=== PATIENT | female | born 1940 | race Caucasian/White ===

== ENCOUNTER 2016-07-06 10:29 | Day surgery (SDC) | payer MEDICARE, OTHER ==
[~2016-07-06 10:29] MED LIST: Lactated Ringers 1,000 ML IV SCH; Sodium Chloride 0.9% 10 ML Syringe FLUSH PRN
[2016-07-06] MEDS ORDERED: fentaNYL 100 MCG/2 ML SDV ONE (13:01)
[2016-07-06] MEDS ORDERED: Propofol 200 MG/20 ML SDV ONE (13:01)
[2016-07-06 15:33] VITALS: BP 139/74
--- NOTE | 2016-07-06 22:13 | OR ---
DATE OF SURGERY: 07/06/2016. REFERRING PROVIDER: RIANA Teran at [facility]. PRE-OPERATIVE DIAGNOSES: 1. Positive FIT stool card. 2. History of diverticulitis, status post drainage in the past. 3. Chronic diarrhea. POST-OPERATIVE DIAGNOSES: 1. About a 2 cm soft mucosal prominence located at the hepatic flexure. I suspect this is a benign mucosal prominence lesion like lipoma. Cold biopsies taken. 2. Mild left-sided diverticulosis. 3. Otherwise normal appearing colon. Random biopsies were taken given the patient's history of chronic diarrhea. PROCEDURE: Colonoscopy with random colon biopsies as well as cold biopsies taken from hepatic flexure mucosal prominence. SURGEON: Tony Chowdhury M.D. ANESTHESIA: Monitored anesthesia care. BOWEL PREP: Good. DESCRIPTION OF PROCEDURE: Tess is a 75-year-old female, who was brought to the endoscopy suite after discussing risks and benefits of the procedure. Informed consent was obtained for conscious sedation and colonoscopy with or without biopsy and/or polypectomy. We also discussed possibility of missed lesions. Pre-procedure exam was unremarkable. IV, oxygen, and monitors were placed. The patient was placed in the left lateral decubitus position. Sedation was administered and a digital rectal exam was performed which was unremarkable. Colonoscope was passed into the rectum and slowly advanced all the way to the cecum. Cecum was viewed and photographed. The colonoscope was slowly withdrawn and the mucosa was closely observed in a direct circumferential manner. Random colon biopsies were taken. The ascending colon was unremarkable except for at the hepatic flexure, where there was a soft mucosal prominence noted. This indented easily and was not friable. This was actually quite soft and mobile, even more so than the lipoma and I suspect it is benign mucosal prominence. Cold biopsies were taken x3 bites. The transverse colon was unremarkable. The descending colon was unremarkable. The sigmoid colon did reveal some mild diverticulosis without any evidence of any inflammation. Retroflexion was performed and rectal mucosa was unremarkable. Scope was removed. The patient tolerated the procedure well. The patient was monitored until that baseline status. Discharge instructions were reviewed and the patient was discharged in good condition. COMPLICATIONS: None. TOTAL TIME: 18 minutes. ESTIMATED BLOOD LOSS: 1 to 2 mL. RECOMMENDATIONS/FOLLOW-UP: We will await results of path report to determine ideal followup interval and the need for any further evaluation. I would like to kindly thank Irma Ordonez for this referral. DMB: 07/06/2016 14:43:34 MODL: 07/06/2016 22:05:48 /[id number]
== END 2016-07-06 15:35 | disposition home or self-care (01) ==
LOC: VM.SDS 10:29
PROVIDERS: ATTEND Family Medicine
DX: Z12.11 Encounter for screening for malignant neoplasm of colon (principal); K57.30 Diverticulosis of large intestine without perforation or abscess without bleeding; K63.89 Other specified diseases of intestine; R19.7 Diarrhea, unspecified; K21.9 Gastro-esophageal reflux disease without esophagitis; D18.03 Hemangioma of intra-abdominal structures; E78.5 Hyperlipidemia, unspecified; N63 Unspecified lump in breast; E66.3 Overweight; M19.90 Unspecified osteoarthritis, unspecified site; Z87.891 Personal history of nicotine dependence; Z79.1 Long term (current) use of non-steroidal anti-inflammatories (NSAID); Z79.899 Other long term (current) drug therapy; Z88.2 Allergy status to sulfonamides; Z68.29 Body mass index [BMI] 29.0-29.9, adult; Z98.890 Other specified postprocedural states
CPT/HCPCS: 00810; 45380; 88305; J2704; J3010; J7120

== ENCOUNTER 2023-09-07 09:28 | Day surgery (SDC) | payer MEDICARE, OTHER ==
[~2023-09-07 09:28] MED LIST changes: -Sodium Chloride 0.9% 10 ML Syringe FLUSH PRN
[2023-09-07] MEDS ORDERED: fentaNYL 100 MCG/2 ML SDV ONE (11:34)
[2023-09-07] MEDS ORDERED: Propofol 200 MG/20 ML SDV ONE (11:34)
== END 2023-09-07 14:09 ==
LOC: VM.SDS 09:28
PROVIDERS: ATTEND Student in an Organized Health Care Education/Training Program
DX: K21.9 Gastro-esophageal reflux disease without esophagitis (principal); K44.9 Diaphragmatic hernia without obstruction or gangrene; K22.89 Other specified disease of esophagus; E87.1 Hypo-osmolality and hyponatremia; Z88.2 Allergy status to sulfonamides
CPT/HCPCS: 00731; 88305; 99100; J2704; J3010; J7120